=== PATIENT | male | born 1950 | race Hispanic/Latino ===

== ENCOUNTER 2025-07-10 08:30 | Day surgery (SDC) | payer BC, OTHER ==
[2025-07-10] MEDS: Ringers Lactate 1,000 ML IV ONE (08:45)
[2025-07-10 09:36] VITALS: O2SAT 100
[2025-07-10] MEDS ORDERED: NS 0.9% VIAL 20 ML ONE (11:30)
[2025-07-10] MEDS ORDERED: ONDANSETRON 4 MG/2 ML VIAL ONE (11:49)
[2025-07-10] MEDS ORDERED: LIDOCAINE 2% MPF 5 ML VIAL ONE (11:49)
[2025-07-10] MEDS ORDERED: FENTANYL CITR 100 MCG/2 ML ONE (11:49)
[2025-07-10] MEDS ORDERED: Ringers Lactate 1,000 ML IV ONE (12:01)
[2025-07-10] MEDS: CEFAZOLIN SODIUM 1 GM/VIAL ONE (12:05)
[2025-07-10] MEDS: HEPARIN 5000 UNIT/ML 1 ML VIAL ONE (12:23)
--- NOTE | 2025-07-10 12:47 | P.BOP ---
Preoperative diagnosis: colon cancer Postoperative diagnosis: same Primary procedure: 1. Placement of portacath Secondary procedure: 2. Interpretation of fluoroscopy Other procedure(s): 3. LEft subclavian and jugular ultrasound Estimated blood loss: <10cc Specimen: none Findings: patent subclavian and jugular Anesthesia: General Complications: None Transferred to: Recovery Room Condition: Good
--- NOTE | 2025-07-10 13:16 | RAD REPORT ---
EXAM: Fluoroscopy use, Fluoroscopy <1 Hour HISTORY: PORT A CATH PLACEMENT COMPARISON: None FINDINGS: A total of 6 images were sent to PACS, during a fluoroscopically guided left side Port-A-Ca th placed. No radiologist was involved in protocoling or performance of the study, and no radiologist was present for the duration of the procedure. No interpretation of the saved images will be provided. Total fluoroscopy time: 0.4. Cumulative dose: 11.0 mGy IMPRESSION: Documentation of fluoroscopy use as above.
--- NOTE | 2025-07-10 13:49 | RAD REPORT ---
EXAM: Chest Single View HISTORY: 75 years Male S/P PORT A CATH PLACEMENT COMPARISON: 06/12/2025 FINDINGS: LUNGS/PLEURA: The lungs are clear. No pleural effusions or pneumothorax. No pulmonary edema. CARDIAC/MEDIASTINUM: The cardiac silhouette is within normal limits. UPPER ABDOMEN: No significant abnormality. BONES: No acute abnormality. LINES/TUBES/OTHER: Left subclavian approach Port-A-Cath with tip overlying the proximal SVC. IMPRESSION: No evidence of acute cardiopulmonary disease. Port placement with tip overlying the proximal SVC. No pneumothorax.
[2025-07-10 14:29] VITALS: BP 140/68; TEMP 97.4
--- NOTE | 2025-07-10 22:18 | OP ---
Date of Procedure: 07/10/2025 Surgeon: Melchor Whitley MD Preoperative Diagnosis: Colon cancer. Postoperative Diagnosis: Colon cancer. Procedures: 1. Placement of a Port-A-Cath, left subclavian vein. 2. Interpretation of fluoroscopy. 3. Left subclavian and jugular ultrasound chest and neck. Estimated Blood Loss: Less than 10 cc. Specimen: None. Findings: The patient has patent subclavian and jugular vein on the left side. Anesthesia: General plus local. Complications: None. Implant: A single-lumen Port-A-Cath. Indications: This is the case of a 75-year-old patient diagnosed with colon cancer in need of chemot herapy as soon as possible. I was asked by the oncologist to put a Port-A-Cath on him. The benefits , alternatives, and risks explained to the patient which include, but not limited to, infection, blee ding, damage to adjacent structures, anesthesia complication, pneumothorax, hemothorax, DVTs, PEs, br eaking of the catheter, clot, MD, and even . He also understands this might not relieve any sym ptoms, he might need more than one surgical intervention. He understood, signed a consent. Description Of Procedure: The patient was brought to the operating room, placed in supine position. Anesthesia was induced without complication. Left chest was prepped and draped in a sterile fashion with the left neck too. With ultrasound, we were able to check the patency of the vein system on th e left side that includes the jugular and subclavian and they looked to be patent. At that moment, I placed the patient in Trendelenburg position. With the patient in Trendelenburg position, the neck and chest were prepped and draped in sterile fashion. Time-out was called. Local anesthesia was arcadio lied followed by 18-gauge needle in the left subclavian vein at the first attempt. Guidewire was pas sed through, guided under fluoroscopy into superior vena cava. Introducer was removed. Then, we pily neled this catheter through a left upper incision where we created a pocket where the Port-A-Cath ignacio l be. We cut it to proper size using fluoroscopy guidance, connected that to the Port-A-Cath using t he enrollment representative's specifications. Secured the Port-A-Cath to the subcutaneous tissue with Monocryl. I tensed the Port-A-Cath by infusing heparinized solution. Excellent backflow and inflow. Then, we proceeded to close the subcutaneous tissue with Monocryl and Steri-Strips on top. The patient was b rought back to normal position and sponge counts and instrument counts were correct. The patient sen t to recovery in stable condition. CAROLINE/SALEEM Voice ID: [id number] Report ID: [id number]
--- NOTE | 2025-07-10 22:23 | DS ---
Date of Discharge: 07/10/2025 Diagnosis: Colon cancer. Procedure: Placement of Port-A-Cath under fluoroscopy and ultrasound of the neck and chest subclavia n area. Condition: Stable. Disposition: Home. Activity: As tolerated. No heavy lifting. Discharge Instructions: Follow up in my office in 1 week. Call for appointment at [phone]. The pa tient will be discharged after relay checker will review the chest x-ray for pneumothorax. CAROLINE/SALEEM Voice ID: [id number] Report ID: [id number]
== END 2025-07-10 14:26 | disposition home or self-care (01) ==
LOC: OR 08:30
PROVIDERS: ATTEND Surgery
PROC: 0JH60WZ Insertion of Totally Implantable Vascular Access Device into Chest Subcutaneous Tissue and Fascia, Open Approach (ICD-10-PCS; principal; 2025-07-10 10:15)
DX: C18.9 Malignant neoplasm of colon, unspecified (principal)
CPT/HCPCS: 71045; 76000; 36561; J1644 ×3; A4216; J2704; J2003; J3010; J2405; J7120 ×2; J0690